=== PATIENT | female | born 1965 | race Asian ===

== ENCOUNTER 2016-10-20 10:28 | Day surgery (SDC) | payer OTHER ==
[2016-10-20] VITALS (10 sets, daily range): BP systolic 114–136; BP diastolic 75–87; PULSE 8–93; RESP 10–15; O2SAT 95–100
[~2016-10-20] VITALS: Ht 154.9 cm; Wt 65.5 kg
--- NOTE | 2016-10-20 09:00 | PCM.HPANE ---
Patient Data Surgeon Admitting Provider: Attending Provider:Eddi Maldonado MD Primary Care Physician:Norma Morelos Other Provider:Yi Cohen Anesthesia Reason for Visit Right Breast Cancer Ht/WT & BMI Height (Feet): 5 Height (Inches): 1 Weight (Kilograms): 65.5 Body Mass Index 27.00 Allergies Coded Allergies: ibuprofen (Verified Allergy, Severe, HIVES, 10/18/16) Breanna Nut (Verified Allergy, Unknown, UNKNOWN, 10/18/16) Past Anesthesia History Anesthesia History: Denies:: Abnormal Airway, Anesthesia Reactions, Difficult Intubation, Malignant Hyperthermia Diabetes History Hx Diabetes?: No MRSA MRSA: No Medications Hypertension Medication: No Home Meds Incl Beta Kiley: No Reported Medications Hydrocodone-Acetaminophen 5-325 mg 1 Each Tablet1 Tablet PO Q6H PRN For Pain Ref 0 10/18/16 Albuterol HFA (Proair HFA)8.5 Gm Hfa.aer.ad2 Puffs INHALATION Q4H 08/15/16 Discontinued Reported Medications Acetaminophen/Diphenhydramine (Tylenol Pm Ex-Strength Caplet)500 Mg-25 Mg Tablet1 Each PO BID 10/17/16 History History of ENT Problems?: No HEENT History: Denies:: Abnormal Airway Difficult Intubation Hx of Heart Problems?: Yes Cardiovascular History: Positive for:: Chest Pain (NON CARDIAC 2015) Irregular Heartbeat (HX PVC'S ) Denies:: Congestive Heart Failure Hypertension (HX HYPERLIPIDEMIA) Hx of Respiratory Problem?: Yes Respiratory History: Positive for:: Asthma Use of Inhalers / NEBS Denies:: Tuberculosis Use of C-PAP Machine (SNORES) Hx Neurologic Problems?: No Hx of GI Problems?: No Hx of Problems?: No Female Hx: Positive for:: Problems with Breasts? (S/P RT BREAST BX,PARTIAL MASTECTOMY W/ SENT NODE BX FOR CA) Denies:: Currently (S/P C/S) Skin History: Denies:: History Skin Disorders? Pressure Ulcers Hx Musculoskeletal Problems?: Yes Musculoskeletal History: Positive for:: Musculoskeletal Trauma (HX OF TOE INJURY) Hx of Psycho/Social Problems?: No Hx Surgeries?: Yes (C/S,RT BREAST BX,PARTIAL MASTECTOMY W/ SENT. NODE BX) Hx Any Other Health Problems?: Yes Other History: Positive for:: Cancer (BREAST CA) Denies:: Endocrine Disease Hospitalization Thyroid Disease History Blood Transfusions: Denies:: Blood Transfusions Hx Diabetes: No Hx Alcohol Use: Yes (OCCAS)Hx Substance Use: No Smoking Status: Never Smoker Have You Smoked inLast 12 mo: No Stop/Bang Treated for Sleep Apnea?: No Do You Have a CPAP Machine?: No S-Snoring: Do You Snore Loudly: Yes T-Tired: feel tired, fatigued: No O-Obsered: Observed not breath: No P-Blood Pressure: treated: No B- Body Mass Index > 35 kg/m2: No A- Age over 50: Yes N- Neck Large Circumference: No G- Gender Male: No JOSEFA Total Score: 2 JOSEFA Risk Assessment: Low Risk, <3 Yes Risk Assessment Category Category 1A: Patient has history of documented sleep apnea, and HAS NOT received any narcotic, sedative or anesthesia administration during this stay. Category 1B: Patient has history of documented sleep apnea, and HAS received any narcotic , sedative or anesthesia administration during this stay Category 2: Patient has SUSPECTED Obstructive Sleep Apnea, and HAS received any narcotic , sedative or anesthesia administration during this stay. Category 3: Patient has SUSPECTED Obstructive Sleep Apnea and HAS NOT received narcotic, sedative or anesthesia administration during this stay. Category 4: Outpatient in Procedural Areas with known sleep apnea or who screen positive for High Risk via the STOP/BANG questionnaire. Exam Exam General Appearance: Alert, Oriented X3, Cooperative, No Acute Distress HEENT/AIRWAY: MP 2 Lungs: Clear to Auscultation, Normal Air Movement Heart: Exam Unremarkable, Regular Rate/Rhythm, No Murmurs/Rubs/Gallops Plan Impression Patient chart reviewed, patient interviewed and anesthestic plan with risks, benefits, and alternatives discussed, and informed consent obtained. NPO Status: 10/05 2300 ASA Physical Status: ASA2 Mod Systemic Disease Anesthetic Plan: GA Bene/Risks/Altern/Consents: Yes HP Complete Prior to Induction: Yes Ryan Armijo MD Oct 20, 2016 09:00
[~2016-10-20 10:28] MED LIST: ALBU8.5H2 INHALATION; CeFAZolin 2 Gm/50 mL D5W IV Premix IV ONE; HYDR-4003 PO; Lactated Ringer's 1,000 ML IV SCH
[2016-10-20] MEDS ORDERED: Ketamine 10 mg/mL 20 mL Inj ONE (10:29)
[2016-10-20] MEDS ORDERED: fentaNYL-PF 50 mCg/mL 2 mL Inj ONE (10:29)
[2016-10-20] MEDS ORDERED: Lactated Ringer's 1,000 ML IV ONE (10:51)
[2016-10-20] MEDS ORDERED: CeFAZolin 2 Gm/50 mL D5W Duplex Bag IV ONE (11:28)
[2016-10-20] MEDS ORDERED: Bupivacaine-MPF 0.5% 30 mL Inj INFILTRATE ONE (12:10)
[2016-10-20] MEDS ORDERED: Lactated Ringer's 500 ML IV PRN (12:16)
[2016-10-20] MEDS ORDERED: Lactated Ringer's 1,000 ML IV SCH (12:16)
[2016-10-20] MEDS ORDERED: Ondansetron 2 mg/mL 2 mL Inj IVPUSH PRN (12:20)
[2016-10-20] MEDS ORDERED: Phenylephrine 10,000 mCg/mL Inj IVPUSH PRN (12:20)
[2016-10-20] MEDS ORDERED: EPHEDrine Sulfate 50 mg/mL Inj IVPUSH PRN (12:20)
[2016-10-20] MEDS ORDERED: HYDROmorphone 1 mg/mL Inj IVPUSH PRN (12:20)
[2016-10-20] MEDS ORDERED: fentaNYL-PF 50 mCg/mL 2 mL Inj IVPUSH PRN (12:20)
[2016-10-20] MEDS ORDERED: MetoCLOpramide 5 mg/mL 2 mL Inj IVPUSH PRN (12:20)
[2016-10-20] MEDS ORDERED: Dexamethasone 4 mg/mL Inj IVPUSH PRN (12:20)
[2016-10-20] MEDS ORDERED: HYDROcodone-APAP 5-325 mg Tablet PO PRN (13:20)
--- NOTE | 2016-10-20 13:41 | OP ---
[address] [address] OPERATIVE REPORT PATIENT: BRYON SHARP : 1965 MR#: [id number] ADMIT: 10/20/2016 JOB ID: [id number] DATE OF SURGERY: 10/20/2016 ANESTHESIA: General. PREOPERATIVE DIAGNOSIS(ES): Right invasive breast cancer, status post partial mastectomy with positive posterior margin. POSTOPERATIVE DIAGNOSIS(ES): Right invasive breast cancer, status post partial mastectomy with positive posterior margin. OPERATIVE PROCEDURE: Re-excision of right breast posterior margin. SURGEON: Eddi Maldonado MD. SPORTSPERSONS: Saray Combs PA-C (the server service assistant was required for the safe and timely completion of the case), and THALIA Garcia. COMPLICATIONS: None. ESTIMATED BLOOD LOSS: Minimal. CONDITION: Satisfactory. SPECIMEN: Right breast new posterior margin. Long stitch anthony lateral, short stitch anthony superior, double stitch anthony deep. FINDINGS: The posterior margin was excised encompassing approximately 3 cm diameter with 1 cm depth. INDICATIONS/SIGNIFICANT HISTORY: The patient is a 51-year-old female with a recent diagnosis of right breast cancer. About two weeks ago, I performed a right partial mastectomy, as well as sentinel lymph node biopsy. [place] lymph node biopsy was negative. The partial mastectomy showed both posterior inferior and posterior superior margins positive. Therefore, decision was made for re-excision of the posterior margin. OPERATIVE TECHNIQUE: The patient was taken to the operating room and placed in the supine position. General anesthesia was administered, and perioperative antibiotics given. The breast was prepped and draped in a standard surgical fashion. The previous circumareolar incision was then opened. The cavity was evacuated of seroma. I then used electrocautery to take a new posterior margin encompassing approximately 3 cm diameter area and a new depth of 1 cm. This was marked as described above. I placed new clips to clearly define the new cavity within the breast. The skin was closed using 3-0 Vicryl deep dermis, followed by a running 4-0 Monocryl. Dermabond was applied. The entire procedure was well tolerated without complication.
--- NOTE | 2016-10-21 07:43 | PCM.ANEP2 ---
Post Anesthesia Evaluation ASA/CMS Post Anesthesia VS in Patient's Normal Range?: Yes Resp Stable; Airway Patent?: Yes CV Function & Hydration Stable: Yes Mental Status Recovered?: Yes Pain control Satisfactory?: Yes N/V Control Satisfactory?: Yes Ryan Armijo MD Oct 21, 2016 07:43
--- NOTE | 2016-10-21 07:43 | PCM.ANEP1 ---
Post Anesthesia Phase 1 PACU Phase 1 Assessment Anesthetic Administered: GA Level of Alertness: Awake, talking TAVERAS's with Equal Strength: Yes Pain: No Nausea or Vomiting: No Oxygen Delivery: Nasal Cannula Lungs: Clear to Auscultation, Normal Air Movement Dermatome Level: Full Sensation Ryan Armijo MD Oct 21, 2016 07:42
--- NOTE | 2016-10-24 12:08 | PATH ---
SURGICAL PATHOLOGY Attending Physician:Eddi Maldonado MD CASE STATUS: Signed Out PATIENT NAME: BRYON SHARP PID: [id number] : 1965 DATE COLLECTED:10/20/2016 21:06 SPECIMEN: Breast Margin CLINICAL HISTORY: RIGHT BREAST CANCER 1). RIGHT BREAST RE-EXCISION NEW POSTERIOR MARGIN, LONG LATERAL, SHORT SUPERIOR, DOUBLE DEEP FINAL DIAGNOSIS: 1.RIGHT BREAST RE-EXCISION POSTERIOR MARGIN OF PREVIOUS BIOPSY ([id number]):CAP CANCER CASE SUMMARY INVASIVE CARCINOMA OF THE BREAST: PROCEDURE: Re-excision, posterior margin. SPECIMEN LATERALITY: Right. TUMOR SIZE: 0.8 cm. HISTOLOGIC TYPE: Invasive ductal carcinoma. HISTOLOGIC GRADE: IRVING HISTOLOGIC SCORE 6 of 9 Glandular/Tubular differentiation: Score 3 of 3 Nuclear Pleomorphism: Score 2 of 3 Mitotic Rate: Score 1 of 3 Overall Grade: Grade 2 of 3 TUMOR FOCALITY: Apparently single focus. DUCTAL CARCINOMA IN SITU: Size (Extent) of DCIS: 0.8 CM. Architectural patterns: Solid. Nuclear grade: Grade Intermediate. Necrosis: Absent. MARGINS INVASIVE CARCINOMA: Anterior: Less than 0.1 cm. Additional margins appear negative. DUCTAL CARCINOMA IN SITU: Medial: Less than 0.1 cm. Additional margins appear negative. OTHER: Focal perineural space invasion identified. PATHOLOGIC STAGING: AJCC, 7th ed., 2010 It is impossible to ascertain if this additional amount of infiltrating duct carcinoma changes the original pathologic stage of pT1b, pN0. PRIMARY TUMOR: pTib REGIONAL LYMPH NODES: pN0 ICD10 code C50.811 GROSS DESCRIPTION: The specimen is received in formalin, labeled with the patient's name and consists of a piece of breast tissue (1.2 cm AP, 2.9 cm SI, 2.5 cm ML) with no overlying skin. The specimen is oriented with 3 black sutures (long-lateral, short-superior, double-deep). No localization wire is present. The breast tissue is fibrofatty. No nodules or masses or lesions are identified. Ink code: purple-anterior; yellow-posterior; black-superior; orange-inferior; green-medial; blue-lateral. Section code: (A) superior resection margin, perpendicularly sectioned; (B-D) breast tissue, serially sectioned and submitted SI, 2 slices in each cassette; (E) inferior resection margin, perpendicularly sectioned. Specimen entirely submitted. Note: Approximate total fixation in formalin-29 hours and 30 minutes calculated using a collection date of October 20, 2016 with no collection time given. 10/21/16 JM MICRO DESCRIPTION: Sections are from a right breast re-excision specimen of the posterior margin of a previous biopsy. There is residual infiltrating ductal carcinoma present similar to that which was present in the original biopsy ([id number]). The tumor is of intermediate nuclear grade with low tubular differentiation and a low mitotic rate which equates to a [place] grade 2 of 3. Residual duct carcinoma is also present of intermediate nuclear grade without necrosis. Areas of perineural space invasion by invasive tumor are also noted. The invasive tumor is present less than 0.1 cm from the inked anterior margin, and the duct carcinoma in situ is present less than 0.1 cm from the medial inked margin. The largest invasive focus measures 0.8 cm with the largest DCIS focus also measuring 0.8 cm. ICD-9 CODES: CPT CODES: 1: 93435 Electronically Signed Out Bubba Villalobos MD [facility] Pathology [facility] [address], [place] [address] Technical component performed at [facility], [address] [place] [address] Ave[address], [place], [address]
[2016-10-31] MEDS ORDERED: ACET325T51 PO (10:01)
[2017-01-16] MEDS ORDERED: TAMO20TA4 PO (12:57)
== END 2016-10-20 23:59 | disposition home or self-care (01) ==
LOC: SAS 10:28
PROVIDERS: ATTEND General Practice
DX: C50.111 Malignant neoplasm of central portion of right female breast (principal); Z17.0 Estrogen receptor positive status [ER+]; J45.909 Unspecified asthma, uncomplicated
CPT/HCPCS: 19120; J0690; J7120